=== PATIENT | male | born 1960 | race Two or more races ===

== ENCOUNTER 2018-10-14 09:12 | Emergency (ER) | payer OTHER | END 2018-10-14 10:17 | disposition left against medical advice (07) | LOC: FTE 09:12 | DX: Z48.01 Encounter for change or removal of surgical wound dressing (principal); F17.210 Nicotine dependence, cigarettes, uncomplicated; R40.2412 Glasgow coma scale score 13-15, at arrival to emergency department | CPT/HCPCS: 99281 ==